=== PATIENT | female | born 1980 | race African-American/Black ===

== ENCOUNTER 2020-03-15 00:17 | Emergency (ER) | payer SELFPAY ==
[~2020-03-15] VITALS: Ht 168.9 cm; Wt 90.9 kg
[2020-03-15] MEDS ORDERED: ACETAMINOPHEN 500 MG TABLET PO ONE (00:45)
[2020-03-15] MEDS ORDERED: TRAM-48 PO (01:16)
--- NOTE | 2020-03-15 01:16 | PHYS DOC ---
Past Medical History Past Medical History: Hypertension, Migraines Additional Past Medical Histor: KNEE AND FEET PROBLEM, INSOMNIA. Past Surgical History: Other Additional Past Surgical Histo: WISDOM SX Smoking Status: Never Smoker Alcohol Use: Occasionally General Adult EDM: Chief Complaint: LOWEREXTREMITY INJURY HPI: HPI: Patient is a 40 year old female presents for valuation of right leg pain. Patient states prior to [place]. Patient states she feel and her right leg was behind her with left leg forward. Patient states she has a burning sensation in her right calf. Patient points to her right calf where the pain is most intense. On exam patient has ROM of right hip, knee, and right ankle. There are no deformities noted. Review of Systems: Review of Systems: Constitutional: Denies fever or chills. [] Eyes: Denies change in visual acuity. [] HENT: Denies nasal congestion or sore throat. [] Respiratory: Denies cough or shortness of breath. [] Cardiovascular: Denies chest pain or edema. [] GI: Denies abdominal pain, nausea, vomiting, bloody stools or diarrhea. [] : Denies dysuria. [] Musculoskeletal: Denies back pain or joint pain. [right leg pain] Integument: Denies rash. [] Neurologic: Denies headache, focal weakness or sensory changes. [] Endocrine: Denies polyuria or polydipsia. [] Lymphatic: Denies swollen glands. [] Psychiatric: Denies depression or anxiety. [] Heart Score: Risk Factors: Risk Factors: DM, Current or recent (<one month) smoker, HTN, HLP, family history of CAD, obesity. Risk Scores: Score 0 - 3: 2.5% MACE over next 6 weeks - Discharge Home Score 4 - 6: 20.3% MACE over next 6 weeks - Admit for Clinical Observation Score 7 - 10: 72.7% MACE over next 6 weeks - Early Invasive Strategies Current Medications: Current Medications Medications (Trade) Dose Ordered Sig/Jacqueline Start Time Stop Time Status Last Admin Dose Admin Acetaminophen (Tylenol) 500 mg 1X ONCE 03/15/20 00:45 03/15/20 00:46 DC 03/15/20 00:38 500 MG Allergies: Allergies: Allergies Coded Allergies Type Severity Reaction Last Updated Verified No Known Drug Allergies 03/15/20 No Physical Exam: PE: Constitutional: Well developed, well nourished, no acute distress, non-toxic appearance. [] HENT: Normocephalic, atraumatic, bilateral external ears normal, oropharynx moist, no oral exudates, nose normal. [] Eyes: PERRLA, EOMI, conjunctiva normal, no discharge. [] Neck: Normal range of motion, no tenderness, supple, no stridor. [] Cardiovascular:Heart rate regular rhythm, no murmur [] Lungs & Thorax: Bilateral breath sounds clear to auscultation [] Abdomen: Bowel sounds normal, soft, no tenderness, no masses, no pulsatile masses. [] Skin: Warm, dry, no erythema, no rash. [] Back: No tenderness, no CVA tenderness. [] Extremities: tenderness right calf, no cyanosis, no clubbing, ROM intact, no edema. [no deformities right lower extremity--- full rom knee hip and ankle] Neurologic: Alert and oriented X 3, normal motor function, normal sensory function, no focal deficits noted. [] Psychologic: Affect normal, judgement normal, mood normal. [] Current Patient Data: Vital Signs: Vital Signs Date Time Temp Pulse Resp B/P (MAP) Pulse Ox O2 Delivery O2 Flow Rate FiO2 03/15/20 00:24 97.3 72 16 146/70 (95) 98 Room Air 97.3 EKG: EKG: [] Radiology/Procedures: Radiology/Procedures: [] Impression: xray wet read negative -right tib fib treated with tylenol in ER Rx ultram Course & Med Decision Making: Course & Med Decision Making Pertinent Labs and Imaging studies reviewed. (See chart for details) [] Dragon Disclaimer: Dragon Disclaimer: This electronic medical record was generated, in whole or in part, using a voice recognition dictation system. Departure Departure Impression: Primary Impression: Pain in right leg Disposition: 01 HOME, SELF-CARE Condition: STABLE Patient Instructions: Muscle Strain Scripts Tramadol Hcl (ULTRAM) 50 Mg Tablet 1 TAB PO PRN Q6HRS PRN for pain MDD 4 Tablet(s), #20 TAB 0 Refills Prov: MARTA LAU DO 03/15/20 Justicifation of Admission Dx: Justifications for Admission: Justification of Admission Dx: N/A MARTA LAU DO Mar 15, 2020 01:16
[2020-03-15] MEDS ORDERED: traMADol 50 MG TABLET PO ONE (01:30)
[2020-03-15 01:45] VITALS: BP 154/91
--- NOTE | 2020-03-15 03:14 | RAD ---
RIGHT TIBIA FIBULA AP LATERAL Clinical Indication: Reason: leg pain Comparison: None. Findings: Marginal osteophytes of the knee. There is mild to moderate medial compartment narrowing. Tiny patellar enthesophyte. No knee joint effusion. The ankle joint is intact. There is no acute fracture or dislocation. There is no significant soft tissue swelling. No radiopaque foreign body is identified. IMPRESSION: 1. No acute fracture of the tibia or fibula. 2. Mild arthropathy of the knee. Electronically signed by: Aayush Hartmann MD (03/15/2020 3:11 AM) SHERIDAN
== END 2020-03-15 01:45 ==
LOC: ER 00:17
DX: M79.604 Pain in right leg (principal); R20.8 Other disturbances of skin sensation; I10 Essential (primary) hypertension; G43.909 Migraine, unspecified, not intractable, without status migrainosus; Z98.890 Other specified postprocedural states
CPT/HCPCS: 73590; 99283

== ENCOUNTER 2020-07-02 10:35 | Emergency (ER) | payer OTHER ==
[~2020-07-02] VITALS: Ht 170.2 cm; Wt 94.0 kg
[~2020-07-02 10:35] MED LIST: TRAM-48 PO
[2020-07-02 10:40] VITALS: BP 139/91
--- NOTE | 2020-07-02 11:24 | PHYS DOC ---
Past Medical History Past Medical History: Hypertension, Migraines, Other Additional Past Medical Histor: KNEE AND FEET PROBLEM, INSOMNIA,PTSD,CHRONIC PAIN Past Surgical History: Other Additional Past Surgical Histo: WISDOM SX Smoking Status: Never Smoker Alcohol Use: Occasionally General Adult EDM: Chief Complaint: ANKLE PROBLEM HPI: HPI: Patient is a 40 year old female who presents with states for the last 2 months she has been having physical therapy on the left ankle due to a sprain that she required when she is playing volleyball in [place]. She states that that ankle has been weak in general. She states that she was going down the stairs today when it gave out and rolled inward and she heard a pop or cracking sound. She can bear weight and is ambulatory but slightly limping. She states the pain does radiate up into the tib-fib. She rates her pain 7 out of 10. History of hypertension, ankle sprain in the left, migraine, insomnia, PTSD. Review of Systems: Review of Systems: Constitutional: Denies fever or chills. [] Eyes: Denies change in visual acuity. [] HENT: Denies nasal congestion or sore throat. [] Respiratory: Denies cough or shortness of breath. [] Cardiovascular: Denies chest pain. + Left ankle 2+ edema. [] GI: Denies abdominal pain, nausea, vomiting, bloody stools or diarrhea. [] : Denies dysuria. [] Musculoskeletal: Denies back pain. +Left ankle joint pain. [] Integument: Denies rash. [] Neurologic: Denies headache, focal weakness or sensory changes. [] Endocrine: Denies polyuria or polydipsia. [] Lymphatic: Denies swollen glands. [] Psychiatric: Denies depression or anxiety. [] Heart Score: Risk Factors: Risk Factors: DM, Current or recent (<one month) smoker, HTN, HLP, family history of CAD, obesity. Risk Scores: Score 0 - 3: 2.5% MACE over next 6 weeks - Discharge Home Score 4 - 6: 20.3% MACE over next 6 weeks - Admit for Clinical Observation Score 7 - 10: 72.7% MACE over next 6 weeks - Early Invasive Strategies Allergies: Allergies: Allergies Coded Allergies Type Severity Reaction Last Updated Verified erythromycin base Allergy Unknown "STOMACH HURTS" 07/02/20 Yes Physical Exam: PE: Constitutional: Well developed, well nourished, no acute distress, non-toxic appearance. [] HENT: Normocephalic, atraumatic, bilateral external ears normal, oropharynx mo ist, no oral exudates, nose normal. [] Eyes: PERRLA, EOMI, conjunctiva normal, no discharge. [] Neck: Normal range of motion, no tenderness, supple, no stridor. [] Cardiovascular:Heart rate regular rhythm, no murmur [] Lungs & Thorax: Bilateral breath sounds clear to auscultation [] Abdomen: Bowel sounds normal, soft, no tenderness, no masses, no pulsatile masses. [] Skin: Warm, dry, no erythema, no rash. [] Back: No tenderness, no CVA tenderness. [] Extremities: Left lateral ankle and bilateral lower tib-fib tenderness, no cyanosis, no clubbing, left ankle ROM limited intact, 2+ edema. [] Neurologic: Alert and oriented X 3, normal motor function, normal sensory function, no focal deficits noted. [] Psychologic: Affect normal, judgement normal, mood normal. [] Current Patient Data: Vital Signs: Vital Signs Date Time Temp Pulse Resp B/P (MAP) Pulse Ox O2 Delivery O2 Flow Rate FiO2 07/02/20 10:40 98.2 65 16 139/91 (107) 99 Room Air 98.2 EKG: EKG: [] Radiology/Procedures: Radiology/Procedures: [] Impression: [facility] [address] [place] [address] IMAGING REPORT Signed PATIENT: JOANN OLVERA ACCOUNT: [id number] : 1980 LOCATION: ER AGE: 40 SEX: F EXAM STATUS: REG ER ORD. PHYSICIAN: ABNER BARRAZA APRN REASON: pain after rolling ankle PROCEDURE: ANKLE LEFT 3V Indications: Pain after rolling ankle Three-view left ankle study: No acute fracture or dislocation or lytic process is evident. The mortise ankle joint is intact. Two-view study left tibia and fibula: No acute fracture or dislocation or lytic process is seen. IMPRESSION: No acute fracture. Electronically signed by: Zev Gutierrez MD (07/02/2020 11:24 AM) [id number] DICTATED and SIGNED BY: ZEV GUTIERREZ MD DATE: 07/02/20 [id number] 0 Course & Med Decision Making: Course & Med Decision Making Pertinent Labs and Imaging studies reviewed. (See chart for details) See HPI. Alert and oriented x4. Speaks in full complete sentences. Left lateral ankle is 2+ swollen but there is no bruising, deformity. There is tenderness at the left lateral ankle. There is left lower tib-fib tenderness with palpation. Pedal pulses strong present. She can wiggle her toes and there is no joint laxity. Skin is pink warm and dry. Cap refill less than 2 seconds. X-ray showed no acute findings. Patient will be placed in a walking boot. Patient to follow-up with her orthopedic doctor. [] Dragon Disclaimer: Dragon Disclaimer: This electronic medical record was generated, in whole or in part, using a voice recognition dictation system. Departure Departure Impression: Primary Impression: Ankle pain, left Qualified Codes: M25.572 - Pain in left ankle and joints of left foot Additional Impression: Leg pain, left Disposition: 01 DC HOME SELF CARE/HOMELESS Condition: STABLE Referrals: UNKNOWN PCP NAME (PCP) MICAH NEGRON MD Patient Instructions: Ankle Sprain Additional Instructions: Use ice and elevation to help with pain and swelling. Take ibuprofen for your pain. Follow-up with your orthopedic doctor soon as possible. Scripts Ibuprofen (IBUPROFEN) 600 Mg Tablet 600 MG PO PRN Q6HRS PRN for INFLAMMATION, #20 TAB Prov: ABNER BARRAZA APRN 07/02/20 ABNER BARRAZA APRN Jul 02, 2020 11:23
--- NOTE | 2020-07-02 11:27 | RAD ---
Indications: Pain after rolling ankle Three-view left ankle study: No acute fracture or dislocation or lytic process is evident. The mortis e ankle joint is intact. Two-view study left tibia and fibula: No acute fracture or dislocation or lytic process is seen. IMPRESSION: No acute fracture. Electronically signed by: Mckinley Gutierrez MD (07/02/2020 11:24 AM) [id number]
[2020-07-02] MEDS ORDERED: IBUP-1007 PO (11:41)
== END 2020-07-02 11:55 | disposition home or self-care (01) ==
LOC: ER 10:35
DX: M25.572 Pain in left ankle and joints of left foot (principal); M79.605 Pain in left leg; R60.0 Localized edema; I10 Essential (primary) hypertension; G43.909 Migraine, unspecified, not intractable, without status migrainosus; G89.29 Other chronic pain; Z98.890 Other specified postprocedural states; Z88.1 Allergy status to other antibiotic agents
CPT/HCPCS: 29515; 73590; 73610; 99284